=== PATIENT | male | born 1960 | race Hispanic/Latino ===

== ENCOUNTER → 2023-03-17 | Outpatient (CLI) | payer BC | END | disposition home or self-care (01) | LOC: RAH 13:48 | PROVIDERS: ATTEND Family Medicine | DX: M75.101 Unspecified rotator cuff tear or rupture of right shoulder, not specified as traumatic (principal); M25.511 Pain in right shoulder; M19.011 Primary osteoarthritis, right shoulder | CPT/HCPCS: 73221 ==